=== PATIENT | female | born 1935 | race Caucasian/White ===

== ENCOUNTER 2016-06-07 10:46 | Observation (INO) | payer MEDICARE, BC ==
--- NOTE | ~2016-06-07 | HP ---
History And Physical [facility] [id number] [place]. [address] NAME: GABRIELA ROMERO : 39 STATUS : DIS IN PAT#: [id number] AGE: 80 ADM/REG DATE : 06/07/16 MR#: [id number] REPORT SERV DATE: 06/09/16 DICTATED BY: DOUGLAS JOHN DATE: 06/08/16 REPORT STATUS : Draft TRANSCRIBED BY: TRISH DATE: 06/08/16 DATE OF ADMISSION: 06/07/2016 ADMITTING DIAGNOSES: 1. Ovarian carcinoma. 2. Extreme fatigue. HISTORY OF PRESENT ILLNESS: Ms Gabriela Romero is a 80-year-old female, who has a diagnosis of ovarian carcinoma who was undergoing a combination of Taxol and carboplatin chemotherapy. She had her chemotherapy approximately four days ago and complains of extreme fatigue and inability to be eat and is admitted to the hospital for support. PAST MEDICAL HISTORY: Significant for hypertension and chronic back pain. MEDICATIONS: Current medications include Coreg, Klonopin, Ibuprofen, Zoloft, tramadol. PAST SURGICAL HISTORY: Previous hysterectomy, BSO, ovarian cancer staging, previous placement of a Port-A-Cath. SOCIAL HISTORY: Negative for tobacco, alcohol, or illicit drug use. PHYSICAL EXAMINATION: GENERAL: She is awake, alert, and oriented x3. Again appears to be extremely fatigued. HEENT: Reveals no gross defects. Her extraocular movements are symmetrical and intact. Ears and nose without defects or lesions. Her hearing is intact and normal for age. NECK: Symmetrical supple without thyromegaly. BACK: Reveals a straight spine without CVA tenderness. EXTREMITIES: Both upper lower have full range of motion. No clubbing, varicosities, or edema. LUNGS: Clear to auscultation bilaterally. HEART: Regular rate and rhythm without abnormal noises. ABDOMEN: Soft, nontender with no palpable masses. SUMMARY: This is a 80-year-old female with ovarian carcinoma, who is undergoing primary chemotherapy, who presents with extreme fatigue. We will admit her. We will check her CBC and electrolytes. We will correct as necessary and support her until she is feeling better. CARLA/TRISH Douglas John M.D. / [id number] History And Physical [address] [address] NAME: GABRIELA ROMERO : 39 STATUS : DIS IN PAT#: [id number] AGE: 80 ADM/REG DATE : 06/07/16 MR#: [id number] REPORT SERV DATE: 06/09/16 DICTATED BY: DOUGLAS JOHN DATE: 06/08/16 REPORT STATUS : Draft TRANSCRIBED BY: MODL DATE: 06/08/16 CC: Imelda Christine II, M.D.
[~2016-06-07 10:46] MED LIST: ADVIL PO; COMP10B PO; COREG3 PO; GLUCOSAMINEPO PO; KLONO5 PO; MULTIPLE VIT PO; OS500+D PO; PCET PO; ZOLOFT25 MG PO; [UNRECOGNIZED DRUG - OTHER]
[2016-06-07] MEDS ORDERED: COREG3 PO ×2 (12:03→15:20)
[2016-06-07] MEDS ORDERED: KLONO5 PO ×2 (12:04→15:21)
[2016-06-07 12:05] LABS: BASOPHILS 0.3 %; BASOPHILS ABSOLUTE 0.02 10/3/uL (0.0-0.16); EOSINOPHILS ABSOLUTE 0.18 10/3/uL (0.0-0.53); HEMATOCRIT 31.7 % (36.0-48.0); HEMOGLOBIN 10.6 g/dL (12.0-16.0); IMMATURE GRANULOCYTES 0.5 %; IMMATURE GRANULOCYTES ABSOLUTE 0.03 10/3/uL (0.0-0.11); LYMPHOCYTES 20.3 %; LYMPHOCYTES ABSOLUTE 1.23 10/3/uL (0.67-4.30); MANUAL DIFF NO %; MEAN CORPUS HGB CONC 33.4 g/dL (32.0-36.0); MEAN CORPUSCULAR VOLUME 89.8 fL (80-100); MEAN PLATELET VOLUME 9.4 fL (9.2-13.0); MONOCYTES 4.1 %; MONOCYTES ABSOLUTE 0.25 10/3/uL (0.21-1.20); NEUTROPHILS 71.8 %; NEUTROPHILS ABSOLUTE 4.34 10/3/uL (2.02-8.40); PLATELET COUNT 446 10/3/uL (150-400); RBC DISTRIBUTION WIDTH 14.6 % (12.0-16.0); RED CELL COUNT 3.53 10/6/uL (4.0-5.6); WHITE BLOOD CELLS 6.1 10/3/uL (4.5-10.5)
[2016-06-07] MEDS ORDERED: DEXA5B (12:12)
[2016-06-07] MEDS ORDERED: ZOFRAN8 (12:12)
[2016-06-07] MEDS ORDERED: ULTRAM50 (12:12)
[2016-06-07] MEDS ORDERED: OS500+D PO (15:20)
[2016-06-07] MEDS ORDERED: DEX2 PO (15:22)
[2016-06-07] MEDS ORDERED: ZOFRAN8 PO ×2 (15:23→15:24)
[2016-06-07] MEDS ORDERED: I-PRIN200 MG PO (15:23)
[2016-06-07] MEDS ORDERED: CENTRUM PO (15:23)
[2016-06-07] MEDS ORDERED: CHEMOTHERAPY IV (15:24)
[2016-06-07] MEDS ORDERED: ZOLOFT25 MG PO (15:24)
[2016-06-07] MEDS ORDERED: ULTRAM50 PO (15:25)
[2016-06-07] MEDS ORDERED: PRILO PO (15:25)
[2016-06-08 05:50] LABS: BASOPHILS 0.8 %; BASOPHILS ABSOLUTE 0.03 10/3/uL (0.0-0.16); EOSINOPHILS 4.7 %; EOSINOPHILS ABSOLUTE 0.17 10/3/uL (0.0-0.53); HEMATOCRIT 29.5 % (36.0-48.0); HEMOGLOBIN 10.1 g/dL (12.0-16.0); IMMATURE GRANULOCYTES 0.3 %; IMMATURE GRANULOCYTES ABSOLUTE 0.01 10/3/uL (0.0-0.11); LYMPHOCYTES 40.7 %; LYMPHOCYTES ABSOLUTE 1.48 10/3/uL (0.67-4.30); MEAN CORPUS HGB CONC 34.2 g/dL (32.0-36.0); MEAN CORPUSCULAR HEMOGLOB 31.4 pg (26.0-34.0); MEAN CORPUSCULAR VOLUME 91.6 fL (80-100); MEAN PLATELET VOLUME 9.6 fL (9.2-13.0); MONOCYTES 5.5 %; NEUTROPHILS ABSOLUTE 1.75 10/3/uL (2.02-8.40); PLATELET COUNT 366 10/3/uL (150-400); RBC DISTRIBUTION WIDTH 14.3 % (12.0-16.0); RED CELL COUNT 3.22 10/6/uL (4.0-5.6)
[2016-06-08 05:51] LABS: MANUAL DIFF NO %; WHITE BLOOD CELLS 3.6 10/3/uL (4.5-10.5)
== END 2016-06-08 14:42 | disposition home or self-care (01) ==
LOC: 4SO 10:46 → 4EA 17:51 → 4SO 17:52 → 4EA 20:53
PROVIDERS: Obstetrics & Gynecology Gynecologic Oncology
DX: C56.9 Malignant neoplasm of unspecified ovary (principal); I10 Essential (primary) hypertension; G89.29 Other chronic pain; M54.9 Dorsalgia, unspecified; Z79.899 Other long term (current) drug therapy; Z90.710 Acquired absence of both cervix and uterus
CPT/HCPCS: 36415; 71020; 74020; 83880; 85025; 86850; 86900; 86901; 96372; 96374; A9270-GY; G0378; J2405

== ENCOUNTER 2016-09-25 12:45 | Emergency (ER) | payer MEDICARE, BC ==
[2016-09-25 11:52] LABS: BASOPHILS 0.4 %; BASOPHILS ABSOLUTE 0.03 10/3/uL (0.0-0.16); EOSINOPHILS 0.5 %; EOSINOPHILS ABSOLUTE 0.04 10/3/uL (0.0-0.53); IMMATURE GRANULOCYTES 0.1 %; IMMATURE GRANULOCYTES ABSOLUTE 0.01 10/3/uL (0.0-0.11); LYMPHOCYTES 18.7 %; LYMPHOCYTES ABSOLUTE 1.39 10/3/uL (0.67-4.30); MEAN CORPUS HGB CONC 34.5 g/dL (32.0-36.0); MEAN CORPUSCULAR HEMOGLOB 32.1 pg (26.0-34.0); MEAN PLATELET VOLUME 9.4 fL (9.2-13.0); MONOCYTES 4.2 %; MONOCYTES ABSOLUTE 0.31 10/3/uL (0.21-1.20); NEUTROPHILS 76.1 %; NEUTROPHILS ABSOLUTE 5.64 10/3/uL (2.02-8.40); RBC DISTRIBUTION WIDTH 11.9 % (12.0-16.0)
[2016-09-25 11:53] LABS: HEMATOCRIT 37.1 % (36.0-48.0); HEMOGLOBIN 12.8 g/dL (12.0-16.0); MANUAL DIFF NO %; PLATELET COUNT 188 10/3/uL (150-400); RED CELL COUNT 3.99 10/6/uL (4.0-5.6); WHITE BLOOD CELLS 7.4 10/3/uL (4.5-10.5)
[2016-09-25 12:07] LABS: A/G RATIO 1.2 (0.7-1.9); ALBUMIN 3.7 G/DL (3.5-5.0); BUN (BLOOD UREA NITROGEN) 19 MG/DL (6-23); CALCIUM, SERUM 9.6 MG/DL (8.5-10.4); CHLORIDE, SERUM 102 MMOL/L (96-112); CO2 (CARBON DIOXIDE) 29 MMOL/L (24-34); CREATININE 0.72 MG/DL (0.55-1.02); GFR AFRICAN AMERICAN 92 ML/MIN (>=60); GFR NON AFRICAN AMERICAN 80 ML/MIN (>=60); GLUCOSE, SERUM 99 MG/DL (60-99); POTASSIUM, SERUM 4.3 MMOL/L (3.5-5.3); SGPT(ALT) 35 U/L (5-65); SODIUM, SERUM 138 MMOL/L (135-148); TOTAL BILIRUBIN 0.2 MG/DL (0-1.2); TOTAL PROTEIN 6.7 G/DL (6.0-8.5)
[2016-09-25 12:12] LABS: ALKALINE PHOSPHATASE 123 U/L (45-117); SGOT(AST) 30 U/L (5-40)
[2016-09-25 12:26] LABS: ASCORBIC ACID (UR NOT ORDER) NEG (NEG); BILIRUBIN, URINE NEGATIVE (NEG); ER URINALYSIS TAT 0 Hrs 16 Mins; KETONE, URINE TRACE MG/DL (NEG); LEUKOCYTE ESTERASE(NOT OR NEG (NEG); NITRITE (URINE) NEG (NEG); WBC (NOT ORDERED) (RFLEX) 1 (0-5)
[~2016-09-25 12:45] MED LIST changes: +CENTRUM PO; +CHEMOTHERAPY IV; +DEX2 PO; +DEXA5B; +I-PRIN200 MG PO; +PRILO PO; +ULTRAM50; +ULTRAM50 PO; +ZOFRAN8; +ZOFRAN8 PO
== END 2016-09-25 15:02 | disposition home or self-care (01) ==
LOC: ER 12:45
PROVIDERS: Nurse Practitioner Family
DX: R11.2 Nausea with vomiting, unspecified (principal); M54.5 Low back pain; G89.29 Other chronic pain; I10 Essential (primary) hypertension; Z85.43 Personal history of malignant neoplasm of ovary; Z87.01 Personal history of pneumonia (recurrent); Z79.899 Other long term (current) drug therapy
CPT/HCPCS: 71010; 80053; 81001; 83605; 83690; 85025; 87040; 93005; 96374; 96375; 99284; J2405